=== PATIENT | male | born 1990 | race Caucasian/White ===

== ENCOUNTER 2017-09-11 10:40 | Day surgery (SDC) | payer OTHER ==
[2017-09-04 13:07] VITALS: BMI 24.3
[2017-09-11] MEDS ORDERED: PROPOFOL 20 ML ONE (11:15)
[2017-09-11] MEDS ORDERED: LIDOCAINE HCL/PF 2% SDV 5ML VIAL ONE (11:18)
[2017-09-11 14:58] VITALS: TEMP 98.1
[2017-09-11 15:15] VITALS: BP 118/77; PULSE 88
--- NOTE | 2017-09-13 17:08 | PATH ---
Surgical Pathology Report Patient Name: ALMAS FERRARA [facility]. Rec. #: [id number] /Age/Gender: 1990 (Age: 27) / M Account: [id number] Location: [facility]-ENDOSCOPY Taken: 09/11/2017 Received: 09/12/2017 Reported: 09/13/2017 Physicians: Ping Dodd M.D. Specimen(s) Received A: BX 2ND PORTION DUODENUM B: BX ANTRUM C: BX GE JUNCTION Clinical History Dyspepsia, abdominal pain Postoperative diagnosis: Gastritis Final Diagnosis A. DUODENUM, SECOND PORTION, BIOPSY: SMALL BOWEL MUCOSA WITHOUT SIGNIFICANT PATHOLOGIC FINDINGS. B. STOMACH, ANTRUM, BIOPSY: GASTRIC ANTRAL MUCOSA WITH MILD CHRONIC GASTRITIS. IMMUNOHISTOCHEMICAL STAIN FOR H. PYLORI IS NEGATIVE. C. GASTROESOPHAGEAL (GE) JUNCTION, BIOPSY: GASTRIC CARDIAC TYPE MUCOSA WITH MILD CHRONIC INFLAMMATION. NO SQUAMOUS MUCOSA IDENTIFIED. Electronically Signed Ping Dodge M.D. Gross Description A. Received in formalin, labeled "second portion duodenum" are 2 bhandari, irregular portions of soft tissue measuring 0.2 and 0.3 cm. in greatest dimension. The specimens are submitted in toto in one cassette. B. Received in formalin, labeled "BX antrum" are 2 bhandari, irregular portions of soft tissue measuring 0.2 and 0.3 cm. in greatest dimension. The specimens are submitted in toto in cassette biopsy one cassette. C. Received in formalin, labeled "BX GE junction" is a bhandari, irregular portion of soft tissue measuring 0.2 cm. in greatest dimension. The specimen is submitted in toto in one cassette. LIT/09/12/2017 monica/09/12/2017
== END 2017-09-11 15:10 | disposition home or self-care (01) ==
LOC: FASU-ENDO 10:40
PROVIDERS: ATTEND Internal Medicine Gastroenterology
PROC: 0DB68ZX Excision of Stomach, Via Natural or Artificial Opening Endoscopic, Diagnostic (ICD-10-PCS; 2017-09-11)
PROC: 0DB48ZX Excision of Esophagogastric Junction, Via Natural or Artificial Opening Endoscopic, Diagnostic (ICD-10-PCS; 2017-09-11)
PROC: 0DB98ZX Excision of Duodenum, Via Natural or Artificial Opening Endoscopic, Diagnostic (ICD-10-PCS; principal; 2017-09-11 12:30)
DX: K29.50 Unspecified chronic gastritis without bleeding (principal); R10.13 Epigastric pain